=== PATIENT | female | born 1945 | race Caucasian/White ===

== ENCOUNTER 2025-03-29 06:02 | Inpatient (IN) | payer MEDICARE, OTHER ==
[2025-03-26 12:58] LABS: Basophils # (auto) 0.1 10 ^3/uL (0-0.2); Eosinophils # (auto) 0.3 10 ^3/uL (0-0.8); Eosinophils % (auto) 3.6 % (0.0-7.0); Hematocrit 35.5 % (36.0-46.0); Hemoglobin 12.4 g/dL (12.2-16.2); Lymphocytes # (auto) 1.7 10 ^3/uL (0.4-5.4); Lymphocytes % (auto) 22.9 % (10.0-50.0); Mean Corpuscular Hemoglobin 30.6 pg (28.0-32.0); Mean Corpuscular Hgb Conc. 34.9 g/dL (32.0-36.0); Mean Corpuscular Volume 87.6 fL (80.0-100.0); Monocytes # (auto) 0.5 10 ^3/uL (0-1.3); Monocytes % (auto) 7.3 % (0.0-12.0); Neutrophils # (auto) 4.9 10 ^3/uL (1.6-8.6); Neutrophils % (auto) 65.2 % (37.0-80.0); Platelet Count (auto) 283 10^3/uL (140-450); Red Blood Cells 4.05 10^6/uL (4.0-5.20); Red Cell Distribution Width 14.6 % (11.8-14.3); White Blood Cell 7.5 10^3/uL (4.4-10.8)
[2025-03-26 13:08] LABS: Urine Bacteria FEW /hpf (None Seen); Urine Blood Negative /uL (Negative); Urine Clarity Clear (Clear); Urine Color Colorless (Yellow); Urine Protein, UAD Negative (Negative); Urine Specific Gravity 1.007 (1.001-1.035); Urine Squamous Epithelial Cell FEW /hpf (<5); Urine Urobilinogen Normal (Negative); Urine WBC < 1 /HPF (0-5); Urine pH 6.5 (5.0-9.0)
[2025-03-26 13:26] LABS: Alanine Aminotransferase 10 U/L (7-40); Albumin 4.4 g/dL (3.2-4.8); Alkaline Phosphatase 82 U/L (46-116); Anion Gap 6 (5-15); Aspartate Aminotransferase 20 U/L (13-40); BUN/Creatinine Ratio 15.6 (10.0-20.0); Blood Urea Nitrogen 19 mg/dL (9-23); Calcium 9.9 mg/dL (8.7-10.4); Carbon Dioxide 25 mmol/L (20-31); Chloride 100 mmol/L (98-107); Glucose 97 mg/dL (74-106); Potassium 3.9 mmol/L (3.5-5.1); Total Protein 7.3 g/dL (5.7-8.2)
[2025-03-26 13:27] LABS: Bilirubin, Total 0.4 mg/dL (0.2-1.0); Sodium 131 mmol/L (136-145)
[2025-03-26 13:33] LABS: INR 1.03 (0.9-1.15); Partial Thromboplastin Time 30.5 SEC (24.5-34.5); Prothrombin Time 10.9 sec (9.3-11.8)
[~2025-03-29] VITALS: Ht 162.6 cm; Wt 92.6 kg
[~2025-03-29 06:02] MED LIST: ALEN35TA18 PO; APIX5TAB PO; ATOR10TA52 PO; FAMO20TA10 GT; IBUP100S11 GT; LEVO-848 GT; LISI20TA56 PO; MET50T GT; SERT25TA28 PO
[2025-03-29] MEDS: ACETAMINOPHEN IV 100 ML IV ONE (06:51)
[2025-03-29] MEDS: CELECOXIB 100 MG CAP ONE (06:55)
[2025-03-29] MEDS: PREGABALIN CAPSULE 75 MG CAP ONE (06:56)
[2025-03-29] MEDS: ACETAMINOPHEN IV 1000 MG/100ML (10MG/ML) IV ONE (07:00)
[2025-03-29] MEDS: CELECOXIB 100 MG CAP PO ONE (07:00)
[2025-03-29] MEDS: PREGABALIN CAPSULE 75 MG CAP PO ONE (07:00)
[2025-03-29] MEDS ORDERED: MIDAZOLAM HCL 2MG/2ML 2ml VIAL (1mg/ml) ONE (07:11)
[2025-03-29] MEDS ORDERED: fentaNYL CITRATE 100 MCG/2 ML VL ONE (07:11)
[2025-03-29] MEDS ORDERED: MORPHINE SULF PF 5 MG/10 ML VIAL ONE (07:11)
[2025-03-29] MEDS ORDERED: ONDANSETRON HCL 4 MG/2 ML VIAL ONE (07:12)
[2025-03-29] MEDS ORDERED: DexAMETHasone SOD PHOS 10MG/1ML VIAL INJ ONE (07:12)
[2025-03-29] MEDS ORDERED: LIDOCAINE 2% (LOCAL ANESTH.) PF 5ml SDV ONE (07:12)
[2025-03-29] MEDS: CEFEPIME 1GM/ 50ML 50 ML IV ONE (07:13)
[2025-03-29] MEDS: ceFAZolin 2 GM/D5W50ml 50 ML IV ONE (07:13)
[2025-03-29] MEDS: TRANEXAMIC ACID 20 ML ONE (07:13)
[2025-03-29] MEDS ORDERED: ONDANSETRON HCL 4 MG/2 ML VIAL IV PRN (07:30)
[2025-03-29] MEDS ORDERED: NITROGLYCERIN 0.4 MG SL TAB SL PRN (07:30)
[2025-03-29] MEDS ORDERED: MORPHINE SULFATE INJ 2 MG/ml SYRG IV PRN (07:30)
[2025-03-29] MEDS: ceFAZolin 1GM/50ML 50 ML IV SCH (07:30)
[2025-03-29] MEDS ORDERED: HYDROmorphone HCL 2 MG/ML VL/or syr IV PRN ×2 (07:30→09:30)
[2025-03-29] MEDS ORDERED: PROPOFOL 10 MG/ML 20 ML IV ONE (07:50)
[2025-03-29] MEDS ORDERED: ROCURONIUM 10MG/ML 10ML VIAL IV ONE (07:51)
[2025-03-29] MEDS ORDERED: ePHEDrine SULFATE 50 MG/ML AMP ONE (08:01)
[2025-03-29] MEDS: MORPHINE SULF PF 5 MG/10 ML VIAL ONE (08:06)
[2025-03-29] MEDS: BUPIVACAINE 0.25% INJ 50ML VIAL ONE (08:06)
[2025-03-29] MEDS: VANCOMYCIN HCL 1000 MG VL ONE (08:06)
[2025-03-29] MEDS: KETOROLAC TROMETH 30 MG/ML 1ML VIAL ONE (08:06)
[2025-03-29] MEDS ORDERED: HYDROmorphone HCL 2 MG/ML VL/or syr ONE (08:20)
[2025-03-29] MEDS ORDERED: LIDOCAINE W/ EPINEPHRINE 1% 20ML VIAL ONE (08:35)
[2025-03-29] MEDS: BUPIVACAINE HCL 0.25% P/F 10 ML VIAL ONE (08:38)
[2025-03-29] MEDS ORDERED: SUGAMMADEX 200mg/2ml Vial (100MG/ML) IV ONE (08:46)
[2025-03-29] MEDS ORDERED: ONDANSETRON HCL 4 MG/2 ML VIAL IV ONE (09:30)
[2025-03-29] MEDS ORDERED: METOCLOPRAMIDE HCL 5MG/ml INJ 2ml VIAL IV ONE (09:30)
[2025-03-29] MEDS ORDERED: hydrALAZINE HCL 20 MG/ML VL IV PRN (09:30)
--- NOTE | 2025-03-29 09:43 | DVHOP2 ---
Operative Report - 2 Report Details Date: 03/29/25 Preop Diagnosis: Right hip osteoarthritis Postop Diagnosis: as above Surgeon: Andrzej Merrill MD Communications Department Chair: Mehul MCKAY Anesthesiologist: Ambrocio RITTER Anesthesia: General Implant: [place] [employer] Size 52 mm R3 cup 35/25 mm screw dual mobility 40+0 femoral head size 9 catalyst std offset stem Consent: The patient was informed of the risks and benefits of the procedure. These include but are not limited to complications of anesthesia, postoperative infection, incomplete relief of symptoms, recurrence of symptoms, damage to blood vessels, nerves and tendons, deep venous thrombosis, pulmonary embolism and possible need for repeat surgery in the future. Estimated Blood Loss: 300 cc Name of Procedure Performed Right total hip arthroplasty using computer navigation/ complex surgery with BMI above 35 Procedure Details Procedure Details: FINDINGS: Extensive degenerative disease with grade IV changes INDICATION: This patient has failed non-operative treatments for hip arthritis and is now indicated for a total hip replacement. Preoperatively in the waiting area as well as in the office, I had a long discussion with the patient regarding the plan, the expected outcome, the risks, benefits, and alternatives of surgery. The risks include, but are not limited to, infection (which may require future surgery and removal of implants) , bleeding (which may require a transfusion), damage to nerves, arteries, veins, tendons, muscles and other adjacent structures. Also discussed the possibilities of dislocation, leg-length discrepancy, intraoperative fractures, implant loosening, heterotopic bone formation, and revision for variety of reasons, and medical complications etc. This was discussed at length and consent has been obtained. DESCRIPTION OF PROCEDURE: In the preoperative holding area, the consent was reviewed and the appropriate extremity was verified by the patient and marked with my initials. The patient was then transferred to the operating theatre. Appropriate anesthetia was induced. All bony prominences were well padded. A time out was performed verifying the side and site of surgery according to standard protocol. Preoperative antibiotics were given. Tranexamic acid was given. The patient was then placed in the lateral decubitus position and fixed with rigid pelvic fixation. All bony prominences were well padded and an axillary roll was placed. The affected hip area was then prepped and draped in the usual sterile fashion. Using an 11-blade, three stab incisions were made over the iliac crest. Two threaded guide pins were inserted into the crest confirming to be in bone. The pelvic array was attached to the pins and tightened. We made a standard posterolateral incision sharply through the skin and carried our dissection down through subcutaneous tissue to the underlying fascia achieving hemostasis where necessary. We incised the fascia in line with our incision. We identified and protected the sciatic nerve. We took down the external rotators and hip capsule from their insertion into the greater trochanter, tagged them and retracted them posteriorly for further protection of the sciatic nerve. A check point was placed into the greater trochanter and the hip center and leg length length were registered. We then dislocated the femoral head and performed an osteotomy of the femoral neck in accordance with our pre-operative plan. The labrum was excised with a long-handle knife, and we exposed the acetabular rim and cotyloid fossa. We then reamed up to our final size in accordance with the preoperative plan. We copiously irrigated and then impacted the final cup into position. We confirmed the position with the robotic navigation guidance. We placed two a cetabular dome screws into the posterior-superior quadrant in the usual fashion. We irrigated the cup and impacted the liner, checking to make sure it was well seated. Attention was then turned to the femur. We used a box osteotome followed by a canal finder to gain entry to the canal. Intramedullary contents were suctioned and care was taken to ensure they did not touch the tissues. We sequentially reamed until good cortical contact, then broached up to out final size. We trialed with the appropriate femoral neck and head and reduced the hip. The hip was taken through a full range of motion. The hip soft tissues were examined in extension and external rotation, the anterior capsule and IT band were palpated, and combined anteversion was determined to be 40 degrees. The hip was stable at maximum flexion, at 90 degrees of flexion and 45 degrees of internal rotation and the position of sleep. Leg lengths were restored as shown using the computer navigation, and the trial LTC matched preoperative and intraoperative templating. The hip was then dislocated and trial components removed. We copiously irrigated the wound and impacted the final femoral stem into position. The femoral head was impacted onto a clean and dry trunion and confirmed to be seated. The hip was reduced ensuring to tissues in the acetabular cup. We again brought it through a full functional range of motion and there was no evidence for dislocation, instability, or impingement. The checkpoint was removed. A dilute betadine solution (17.5mL in 500mL saline) was used to wash the joint and left to sit for 3 minutes. This was then irrigated out with copious amounts of pulse lavage. We sprinkled 1g vancomycin powder below the fascia and 1g above the fascia. We copiously irrigated the wound and soft tissues. The short external rotators and capsule were repaired to the greater trochanter through drill holes, and the quadratus was repaired. We palpated the sciatic nerve in continuity without tension. The fascia was closed with vicryl and a barbed suture. We closed over the fascia with vicryl suture and re-approximated the skin with phil. A sterile dressing was placed. We returned the patient to the supine position. We verified all lower extremity compartments were soft and compressible and that we had intact distal pulses and checked our leg length jainism. We took an AP Pelvis in the operating room, which we reviewed prior to transfer. The patient was then transferred to the recovery room in stable condition. Condition Good Disposition Still a Patient ANDRZEJ MERRILL MD Mar 29, 2025 09:43
[2025-03-29] MEDS: LACTATED RINGER'S 1,000 ML IV SCH (09:50)
--- NOTE | 2025-03-29 09:51 | DVH ---
EXAM: XY PELVIS AP CLINICAL INDICATION: sp Right YARA TECHNIQUE: XY PELVIS AP Comparison: None FINDINGS/IMPRESSION: There is no evidence of acute fracture or dislocation. Status post right total hip arthroplasty. Moderate left hip osteoarthritis
[2025-03-29] MEDS: LEVOTHYROXINE SODIUM 50 MCG TAB GT SCH (10:00)
[2025-03-29] MEDS ORDERED: SERTRALINE HCL 25 MG PO SCH (10:00)
[2025-03-29] MEDS ORDERED: PATIENTS OWN MEDICATION (Atorvastatin Calcium 10 MG) PO SCH (10:00)
[2025-03-29] MEDS ORDERED: MORPHINE SULFATE 4 MG/ML SYR/VIAL IV PRN (10:00)
[2025-03-29] MEDS ORDERED: CEFEPIME 1GM/ 50ML 50 ML IV SCH (10:00)
[2025-03-29] MEDS: LISINOPRIL 20 MG TAB PO SCH (10:00)
[2025-03-29] MEDS: METOPROLOL TARTRATE 50 MG TAB GT SCH (10:00)
[2025-03-29 10:40] VITALS: BP 99/45; PULSE 69; RESP 19; TEMP 97.7; O2SAT 95
[2025-03-29] MEDS: DOCUSATE SOD 100 MG CAP PO SCH (11:57)
[2025-03-29] MEDS: FAMOTIDINE 20 MG TAB GT SCH (11:57)
[2025-03-29] MEDS: SERTRALINE HCL 50 MG TAB PO SCH (11:59)
[2025-03-29] MEDS: CEFEPIME 1GM/ 50ML 50 ML IV SCH (12:01)
[2025-03-29 12:51] VITALS: BP 112/67; PULSE 69; RESP 19; TEMP 97.7; O2SAT 95
[2025-03-29 17:01] VITALS: BP 115/74; PULSE 58; RESP 19; TEMP 97.9; O2SAT 94
[2025-03-29] MEDS: SODIUM CHLOR 0.9% PF (SALINE LOCK) 10ML VIAL/SYR IV SCH (18:07)
[2025-03-29] MEDS: HYDROcodone-ACET 5/325MG TAB PO PRN (18:07)
[2025-03-29 20:00] VITALS: PULSE 61; RESP 17; O2SAT 100
[2025-03-29 21:26] VITALS: BP 96/60; PULSE 53; RESP 17; O2SAT 97
[2025-03-29] MEDS: ATORVASTATIN 20 MG TAB PO SCH (22:29)
[2025-03-30] VITALS (8 sets, daily range): BP systolic 100–128; BP diastolic 53–74; PULSE 66–77; RESP 17–19; TEMP 97.4–98.7; O2SAT 92–100
[2025-03-30 06:26] LABS: Hematocrit 31.4 % (36.0-46.0); Hemoglobin 10.5 g/dL (12.2-16.2)
[2025-03-30 06:32] LABS: Albumin 3.7 g/dL (3.2-4.8); Alkaline Phosphatase 59 U/L (46-116); Anion Gap 10 (5-15); BUN/Creatinine Ratio 19.5 (10.0-20.0); Bilirubin, Total 0.4 mg/dL (0.2-1.0); Chloride 98 mmol/L (98-107); Potassium 4.8 mmol/L (3.5-5.1); Total Protein 6.3 g/dL (5.7-8.2)
[2025-03-30 06:40] LABS: Alanine Aminotransferase < 9 U/L (7-40); Blood Urea Nitrogen 26 mg/dL (9-23); Calcium 8.7 mg/dL (8.7-10.4); Carbon Dioxide 20 mmol/L (20-31); Glucose 117 mg/dL (74-106); Sodium 128 mmol/L (136-145)
[2025-03-30 07:26] LABS: Aspartate Aminotransferase 40 U/L (13-40)
--- NOTE | 2025-03-30 08:10 | DVHPN2 ---
Progress Note Date Seen: Mar 30, 2025 Medical Necessity Reason Pt with a Central, PICC or Fol: No Subjective Patient reports: No new complaints Objective vital signs Vital Sign Date Time Temp Pulse Resp B/P (MAP) Pulse Ox O2 Delivery O2 Flow Rate FiO2 03/30/25 05:00 97.5 74 19 100/53 (69) 100 97.5 03/29/25 20:00 Nasal Cannula* 2 28 Total Intake and Output 03/29/25 03/29/25 03/30/25 15:00 23:00 07:00 Intake Total 120 ml 400 ml 550 ml Balance 120 ml 400 ml 550 ml medications Current Medications Medications Dose Ordered Sig/Lacey Route Start Time Stop Time Status Last Admin Dose Admin Famotidine 20 mg DAILY GT 03/29/25 10:00 03/29/25 11:57 20 MG Levothyroxine Sodium 50 mcg DAILY GT 03/29/25 10:00 Lisinopril 20 mg DAILY PO 03/29/25 10:00 Metoprolol Tartrate 50 mg BID GT 03/29/25 10:00 Patient Own Medication 10 mg DAILY PO 03/29/25 10:00 UNV Patient Own Medication 25 mg DAILY PO 03/29/25 10:00 UNV Lactated Ringer's 1,000 ml @ 100 mls/hr Q10H IV 03/29/25 07:30 03/30/25 04:42 100 MLS/HR Sodium Chloride 10 ml Q8HR IV 03/29/25 14:00 03/30/25 05:31 10 ML Acetaminophen/ Hydrocodone Bitart 1 tab Q4HP PRN PO 03/29/25 07:30 03/29/25 18:07 1 TAB Hydromorphone HCl 1 mg Q2HP PRN IV 03/29/25 07:30 Ondansetron HCl 4 mg Q6HP PRN IV 03/29/25 07:30 Docusate Sodium 100 mg Q12HR PO 03/29/25 10:00 03/29/25 22:29 100 MG Nitroglycerin 0.4 mg Q5MINP PRN SL 03/29/25 07:30 Morphine Sulfate 2 mg Q30M PRN IV 03/29/25 07:30 UNV Atorvastatin Calcium 10 mg HS PO 03/29/25 22:00 03/29/25 22:29 10 MG Sertraline HCl 25 mg DAILY PO 03/29/25 10:00 03/29/25 11:59 25 MG Morphine Sulfate 2 mg Q30M PRN IV 03/29/25 10:00 Cefepime HCl 50 ml @ 12.5 mls/hr Q12H IV 03/29/25 10:15 03/29/25 22:30 12.5 MLS/HR Examination: GENERAL:Normal, MSK:Abnormal laboratory and microbiology Laboratory Tests 03/30/25 04:56 03/26/25 12:45 Test 03/30/25 04:56 Range/Units Serum Glucose 117 H 74-106 mg/dL Problem List/Assessment/Plan Problem List/Assessment/Plan 79 year old female who is s/p Right YARA POD 1 1. WBAT with walker 2. Physical therapy 3. discussed posterior hip precautions 4. DVT ppx 5. pain control Plan discussed with: Patient Date of Service: Mar 30, 2025 Billing Provider: SHARON MERRILL MD Common Visit Codes: NOT BILLABLE JENNIFFER SANTIAGO NP Mar 30, 2025 08:10
[2025-03-30] MEDS ORDERED: HYDROmorphone HCL 2 MG/ML VL/or syr IV PRN (14:30)
--- NOTE | 2025-03-30 14:53 | DVHHP2 ---
Review of Systems Allergies: Coded Allergies: NO KNOWN ALLERGIES (Unverified , 03/26/25) Medications Current Medications Medications Dose Ordered Sig/Lacey Route Start Time Stop Time Status Last Admin Dose Admin Patient Own Medication 10 mg DAILY PO 03/29/25 10:00 UNV Patient Own Medication 25 mg DAILY PO 03/29/25 10:00 UNV Lactated Ringer's 1,000 ml @ 100 mls/hr Q10H IV 03/29/25 07:30 03/30/25 04:42 100 MLS/HR Sodium Chloride 10 ml Q8HR IV 03/29/25 14:00 03/30/25 05:31 10 ML Acetaminophen/ Hydrocodone Bitart 1 tab Q4HP PRN PO 03/29/25 07:30 03/30/25 10:53 1 TAB Ondansetron HCl 4 mg Q6HP PRN IV 03/29/25 07:30 Docusate Sodium 100 mg Q12HR PO 03/29/25 10:00 03/30/25 09:12 100 MG Nitroglycerin 0.4 mg Q5MINP PRN SL 03/29/25 07:30 Morphine Sulfate 2 mg Q30M PRN IV 03/29/25 07:30 UNV Atorvastatin Calcium 10 mg HS PO 03/29/25 22:00 03/29/25 22:29 10 MG Sertraline HCl 25 mg DAILY PO 03/29/25 10:00 03/30/25 09:13 25 MG Morphine Sulfate 2 mg Q30M PRN IV 03/29/25 10:00 Cefepime HCl 50 ml @ 12.5 mls/hr Q12H IV 03/29/25 10:15 03/30/25 09:15 12.5 MLS/HR Famotidine 20 mg DAILY PO 03/31/25 10:00 UNV Hydromorphone HCl 1 mg Q3HP PRN IV 03/30/25 14:30 UNV Levothyroxine Sodium 50 mcg DAILY PO 03/31/25 10:00 UNV Exam Vital Signs Vital Signs Date Time Temp Pulse Resp B/P (MAP) Pulse Ox O2 Delivery O2 Flow Rate FiO2 03/30/25 10:23 97.7 67 17 126/74 (91) 95 97.7 03/30/25 08:10 Nasal Cannula* 2 28 Labs/Xrays Labs Test 03/30/25 04:56 03/26/25 12:45 Range/Units Hemoglobin 10.5 #L 12.2-16.2 g/dL Hematocrit 31.4 #L 36.0-46.0 % Sodium Level 128 L 136-145 mmol/L Potassium Level 4.8 3.5-5.1 mmol/L Chloride Level 98 98-107 mmol/L Carbon Dioxide Level 20 20-31 mmol/L Anion Gap 10 5-15 Blood Urea Nitrogen 26 H 9-23 mg/dL Creatinine 1.33 H 0.550-1.02 mg/dL Glomerular Filtration Rate Calc 40 >90 mL/min BUN/Creatinine Ratio 19.5 10.0-20.0 Serum Glucose 117 H 74-106 mg/dL Calcium Level 8.7 8.7-10.4 mg/dL Total Bilirubin 0.4 0.2-1.0 mg/dL Aspartate Amino Transferase (AST) 40 13-40 U/L Alanine Aminotransferase (ALT) < 9 7-40 U/L Alkaline Phosphatase 59 46-116 U/L Total Protein 6.3 5.7-8.2 g/dL Albumin 3.7 3.2-4.8 g/dL White Blood Count 7.5 4.4-10.8 10^3/uL Red Blood Count 4.05 4.0-5.20 10^6/uL Mean Corpuscular Volume 87.6 80.0-100.0 fL Mean Corpuscular Hemoglobin 30.6 28.0-32.0 pg Mean Corpuscular Hemoglobin Concent 34.9 32.0-36.0 g/dL Red Cell Distribution Width 14.6 H 11.8-14.3 % Platelet Count 283 140-450 10^3/uL Mean Platelet Volume 7.0 6.9-10.8 fL Neutrophils (%) (Auto) 65.2 37.0-80.0 % Lymphocytes (%) (Auto) 22.9 10.0-50.0 % Monocytes (%) (Auto) 7.3 0.0-12.0 % Eosinophils (%) (Auto) 3.6 0.0-7.0 % Basophils (%) (Auto) 1.0 0.0-2.0 % Neutrophils # (Auto) 4.9 1.6-8.6 10 ^3/uL Lymphocytes # (Auto) 1.7 0.4-5.4 10 ^3/uL Monocytes # (Auto) 0.5 0-1.3 10 ^3/uL Eosinophils # (Auto) 0.3 0-0.8 10 ^3/uL Basophils # (Auto) 0.1 0-0.2 10 ^3/uL Nucleated Red Blood Cells 0.0 % Prothrombin Time 10.9 9.3-11.8 sec Prothrombin Time INR 1.03 0.9-1.15 Activated Partial Thromboplast Time 30.5 24.5-34.5 SEC Urine Color Colorless Yellow Urine Clarity Clear Clear Urine pH 6.5 5.0-9.0 Urine Specific [place] 1.007 1.001-1.035 Urine Protein Negative Negative Urine Ketones Negative Negative Urine Blood Negative Negative /uL Urine Nitrite Negative Negative Urine Bilirubin Negative Negative Urine Urobilinogen Normal Negative mg/dL Urine Leukocyte Esterase Negative Negative /uL Urine RBC 1 0 - 4 /hpf Urine Microscopic WBC < 1 0-5 /HPF Urine Squamous Epithelial Cells Few <5 /hpf Urine Bacteria Few H None Seen /hpf Urine Glucose Normal Normal mg/dL Assessment/Plan Assessment/Plan see dictated note Plan discussed with: Patient, Spouse My Orders Orders - LEONARDO DUARTE MD Procedure Category Date Status Time Famotidine Tablet PHA 03/31/25 In Process (Pepcid Tablet) 10:00 Hydromorphone PHA 03/30/25 In Process Injection (Dilaudid 14:30 Levothyroxine Tablet PHA 03/31/25 In Process (Synthroid Tablet) 07:00 Complete Blood Count LAB 03/31/25 Verified 06:00 Comprehensive LAB 03/31/25 Verified Metabolic Panel 06:00 Chest Portable XY 03/30/25 Logged 14:29 Thyroid Stimulating LAB 03/31/25 Verified Hormone 05:00 Date of Service: Mar 30, 2025 Billing Provider: LEONARDO DUARTE MD Common Visit Codes: 52858-[id number] INP/OBS CARE (HIGH) Secondary Visit Codes: 95832-[id number] CARE PLAN 30 MINUTES LEONARDO DUARTE MD Mar 30, 2025 14:53
--- NOTE | 2025-03-30 15:14 | DVHHP ---
ADMIT DATE: 03/29/2025 HISTORY OF PRESENT ILLNESS: The patient is an 79-year-old lady who is admitted after she underwent surgery on the right hip for DJD of the hip. The patient at this time complains of dizziness. No history of syncope. No chest pain. No shortness of breath. No nausea or vomiting. REVIEW OF SYSTEMS: Otherwise currently negative. PAST MEDICAL HISTORY: Significant for hypertension, hypothyroidism, atrial fibrillation, and hyperlipidemia. MEDICATIONS: Include Lipitor, Eliquis, levothyroxine, lisinopril, metoprolol, and Zoloft. ALLERGIES: No known drug allergies. SOCIAL HISTORY: Denies smoking or alcohol. Lives with her and daughter. FAMILY HISTORY: Negative. PHYSICAL EXAMINATION: GENERAL: The patient is awake and alert. VITAL SIGNS: Temperature of 97.7, pulse 67 per minute, blood pressure 126/74. SHEENT: Unremarkable. NECK: There is no JVD. No pedal edema. LUNGS: Equal bilaterally. No added sounds. CARDIOVASCULAR: S1 and S2 regular. No murmurs. ABDOMEN: Soft. There is no organomegaly. NEUROLOGIC: Nonfocal. MUSCULOSKELETAL: There is a dressing at the site of right hip surgery. ASSESSMENT AND PLAN: * Hypertension. The patient's blood pressure medications will be held and blood pressure will be monitored. * Hyponatremia. * Hypothyroidism. Her TSH will be checked. * Hyperlipidemia. * Questionable acute renal failure/vasomotor nephropathy. Renal function will be monitored. * Obesity. * Depression. * Status post right hip surgery for degenerative joint disease of the hip for which she will receive physical therapy and pain medication. ADVANCED CARE PLANNING: The patient is a full code-Time spent was 18 minutes. MD DARA Henderson/EKT TID: [id number] RECEIPT: [id number] MTDD
--- NOTE | 2025-03-30 17:10 | DVH ---
CHEST RADIOGRAPH Indication: htn Technique: Single frontal view of the chest was obtained COMPARISON: None FINDINGS: The cardiac silhouette is enlarged. The lungs demonstrate bilateral patchy airspace opacities. The pu lmonary vasculature is prominent. Small bilateral pleural effusions. There is no pneumothorax. Aortic atherosclerotic disease. Postsurgical changes of the GE junction. Severe degenerate changes right sh oulder. IMPRESSION: 1. As above
[2025-03-31 01:00] VITALS: BP 104/37; PULSE 82; RESP 18; TEMP 97.4; O2SAT 92
[2025-03-31 05:00] VITALS: BP 120/50; PULSE 81; RESP 17; TEMP 97.5; O2SAT 94
[2025-03-31] MEDS: LEVOTHYROXINE SODIUM 50 MCG TAB PO SCH (05:36)
[2025-03-31 08:10] LABS: Basophils # (auto) 0 10 ^3/uL (0-0.2); Basophils % (auto) 0.3 % (0.0-2.0); Eosinophils # (auto) 0.1 10 ^3/uL (0-0.8); Eosinophils % (auto) 1.3 % (0.0-7.0); Hematocrit 26.5 % (36.0-46.0); Hemoglobin 9.1 g/dL (12.2-16.2); Lymphocytes # (auto) 0.9 10 ^3/uL (0.4-5.4); Lymphocytes % (auto) 9.7 % (10.0-50.0); Mean Corpuscular Hgb Conc. 34.4 g/dL (32.0-36.0); Mean Corpuscular Volume 87.3 fL (80.0-100.0); Monocytes # (auto) 0.8 10 ^3/uL (0-1.3); Monocytes % (auto) 8.7 % (0.0-12.0); Neutrophils # (auto) 7.3 10 ^3/uL (1.6-8.6); Platelet Count (auto) 205 10^3/uL (140-450); Red Blood Cells 3.04 10^6/uL (4.0-5.20); Red Cell Distribution Width 14.3 % (11.8-14.3); White Blood Cell 9.2 10^3/uL (4.4-10.8)
--- NOTE | 2025-03-31 08:16 | DVHPN2 ---
Progress Note Date Seen: Mar 31, 2025 Medical Necessity Reason Pt with a Central, PICC or Fol: No Subjective Patient reports: Feels worse (patient notes increased pain, discussed that bruising is normal) Objective vital signs Vital Sign Date Time Temp Pulse Resp B/P (MAP) Pulse Ox O2 Delivery O2 Flow Rate FiO2 03/31/25 05:00 97.5 81 17 120/50 (73) 94 97.5 03/30/25 20:00 Nasal Cannula* 2 28 Total Intake and Output 03/30/25 03/30/25 03/31/25 15:00 23:00 07:00 Intake Total 50 ml 480 ml 850 ml Balance 50 ml 480 ml 850 ml medications Current Medications Medications Dose Ordered Sig/Lacey Route Start Time Stop Time Status Last Admin Dose Admin Patient Own Medication 10 mg DAILY PO 03/29/25 10:00 UNV Patient Own Medication 25 mg DAILY PO 03/29/25 10:00 UNV Lactated Ringer's 1,000 ml @ 100 mls/hr Q10H IV 03/29/25 07:30 03/30/25 04:42 100 MLS/HR Sodium Chloride 10 ml Q8HR IV 03/29/25 14:00 03/31/25 05:54 10 ML Acetaminophen/ Hydrocodone Bitart 1 tab Q4HP PRN PO 03/29/25 07:30 03/31/25 03:05 1 TAB Ondansetron HCl 4 mg Q6HP PRN IV 03/29/25 07:30 Docusate Sodium 100 mg Q12HR PO 03/29/25 10:00 03/30/25 21:26 100 MG Nitroglycerin 0.4 mg Q5MINP PRN SL 03/29/25 07:30 Morphine Sulfate 2 mg Q30M PRN IV 03/29/25 07:30 UNV Atorvastatin Calcium 10 mg HS PO 03/29/25 22:00 03/30/25 21:26 10 MG Sertraline HCl 25 mg DAILY PO 03/29/25 10:00 03/30/25 09:13 25 MG Morphine Sulfate 2 mg Q30M PRN IV 03/29/25 10:00 Cefepime HCl 50 ml @ 12.5 mls/hr Q12H IV 03/29/25 10:15 03/30/25 21:26 12.5 MLS/HR Famotidine 20 mg DAILY PO 03/31/25 10:00 Hydromorphone HCl 1 mg Q3HP PRN IV 03/30/25 14:30 Levothyroxine Sodium 50 mcg QAM PO 03/31/25 07:00 03/31/25 05:36 50 MCG Examination: GENERAL:Normal, MSK:Abnormal laboratory and microbiology Test 03/31/25 07:21 Range/Units Serum Glucose Pending Problem List/Assessment/Plan Problem List/Assessment/Plan 79 year old female who is s/p Right YARA POD 2 1. WBAT with walker 2. Physical therapy 3. discussed posterior hip precautions 4. DVT ppx 5. pain control 6. patient to follow up in 2 weeks as scheduled 7. patient is clear for discharge from orthopedic standpoint, recommending SNF for discharge with the following recommendations: POSTOPERATIVE Posterior Total Hip INSTRUCTIONS Activity: 1. You can bear as much weight as you tolerate on your hip unless specifically instructed otherwise. You may use the walking aid which you were discharged with and switch to a cane whenever you feel comfortable doing so. You should use an assistive device until you can walk comfortably without it. Keep in mind that every patient moves at their own speed of recovery so take your time. 2. A physical therapist will visit you at home. 3. Although guarantees against a dislocation do not exist, the hip was noted to be sufficiently stable in surgery. Below are motions that you should dischargenot do for 4-6 weeks, depending on the surgical approach used. If there are questions, please call the office. a. Bend forward past 90 degrees b. Sit on a regular low chair, couch, car seat etc... c. Cross your legs d. Use a regular low toilet seat. e. Sleep on your stomach or on either side. 3. High impact activity such as jumping, aerobics, tennis, and skiing are not permitted during the first 3 months after surgery. These activities can contribute to accelerated wear and should be done with caution after this time. Discuss this with your surgeon if you have questions. 4. Although a bath or whirlpool is NOT permitted during the first 2-3 weeks, you may shower as soon as you get home from the hospital provided you are able to keep your bandage clean and dry and there is no wound drainage. If you are unable to place a secured covering over your bandage bed bath/sponge bath may likely be the more appropriate option. 5. Swimming is not permitted until the wound is healed, which typically occurs approximately 3-4 weeks after surgery. Wound Management: If the wound is draining please change the gauze pad on the wound until it stops. If drainage persists past 10 days please notify our office. If there is a sticky gel dressing over your wound, you may leave this in place for as long as it is clean and dry. If it becomes loose or causes skin irritation, it is OK to remove it and place clean gauze over your wound. 1. You might notice some bruising around the surgical site, this is normal. 2. Check your temperature on a daily basis. Please note that a low-grade temp below 101 is not uncommon after surgery especially during the first 3 days. Notify the office if your temperature spikes above 101.5 after the 3rd post- operative date. 3. Many patients experience significant swelling in the thigh, this may extend below the knee and sometimes to the ankle. Swelling increases during the first week and subsides during the following week. 4. Provided you have been on a blood thinner since surgery and have been up and about at least three times per day, the risk of a blood clot is low and this swelling is an expected part of recovery. It will largely or completely resolve by your first post-operative visit. 5. Andre, if present, will be removed at 2 weeks during initial post-op visit. Medications: 1. You will be discharged with pain medication, Aspirin as a blood thinner and sometimes an anti-inflammatory medication such as Celebrex or Mobic might be prescribed. Please follow the instructions regarding these medicines as provided by your nurse at the hospital. 2. Narcotic pain medication has side effects, including constipation. Please ensure you continue to take stool softeners (Colace, Senna) while taking your pain medication to help protect against constipation. Getting up and moving around at least a few times per day helps with this also. 3. Lovenox 40 Sq x 12 days followed by one regular strength 325 mg coated aspirin daily for 4 weeks after surgery. Then, take one baby aspirin, 81 mg daily for 6 weeks more. A major, yet preventable, complication of Orthopaedic Surgery is a blood clot (DVT). It is important not to miss any doses of this important medication. 4. You should restart all of your prescription medications once discharged unless specifically instructed otherwise. 5. Herbal supplements may be restarted 2 weeks after surgery. Miscellaneous issues: 1. Driving is not permitted within the first 2 weeks. 2. Your first postoperative visit will take place 2weeks after discharge. Please call the office to arrange this appointment. 3. Antibiotic preventative treatment is required before dental or other invasive procedures. Please ask your surgeon about this at your first postoperative visit. Your hip replacement contains metal which may activate metal detectors. You may wish to carry a letter from your surgeon to communicate this to security personnel. If you experience chest pain, shortness of breath or severe painful calf swelling, go to the nearest emergency room to be evaluated. Please call our office once your situation is stabilized. Plan discussed with: Patient My Orders My Orders Orders - JENNIFFER SANTIAGO NP Procedure Category Date Status Time * Wound Consult CONS 03/30/25 Transmitted Date of Service: Mar 31, 2025 Billing Provider: SHARON MERRILL MD Common Visit Codes: NOT BILLABLE JENNIFFER SANTIAGO NP Mar 31, 2025 08:16
[2025-03-31 08:22] LABS: Alanine Aminotransferase 14 U/L (7-40); Albumin 3.5 g/dL (3.2-4.8); Alkaline Phosphatase 59 U/L (46-116); Anion Gap 7 (5-15); BUN/Creatinine Ratio 23.1 (10.0-20.0); Calcium 8.9 mg/dL (8.7-10.4); Carbon Dioxide 24 mmol/L (20-31); Potassium 4.1 mmol/L (3.5-5.1); Total Protein 5.8 g/dL (5.7-8.2)
[2025-03-31 08:23] LABS: Aspartate Aminotransferase 57 U/L (13-40); Bilirubin, Total 0.5 mg/dL (0.2-1.0); Blood Urea Nitrogen 24 mg/dL (9-23); Chloride 94 mmol/L (98-107); Glucose 112 mg/dL (74-106); Sodium 125 mmol/L (136-145)
[2025-03-31 08:53] VITALS: BP 102/50; PULSE 84; RESP 19; TEMP 97.9; O2SAT 96
[2025-03-31] MEDS: FAMOTIDINE 20 MG TAB PO SCH (09:18)
[2025-03-31 13:00] VITALS: BP 115/55; PULSE 66; RESP 17; TEMP 98.1; O2SAT 96
--- NOTE | 2025-03-31 13:09 | DVHPN2 ---
Progress Note Date Seen: Mar 31, 2025 Medical Necessity Reason Pt with a Central, PICC or Fol: No Subjective Patient reports: No new complaints Review of Systems: HEENT:Normal, CVS:Normal, RESPIRATORY:Normal, GI:Normal, :Normal, MSK:Normal, NEURO:Normal Objective vital signs Vital Sign Date Time Temp Pulse Resp B/P (MAP) Pulse Ox O2 Delivery O2 Flow Rate FiO2 03/31/25 08:53 97.9 84 19 102/50 (67) 96 97.9 03/31/25 08:00 Nasal Cannula* 2 28 Total Intake and Output 03/30/25 03/30/25 03/31/25 15:00 23:00 07:00 Intake Total 50 ml 480 ml 850 ml Balance 50 ml 480 ml 850 ml medications Current Medications Medications Dose Ordered Sig/Lacey Route Start Time Stop Time Status Last Admin Dose Admin Patient Own Medication 10 mg DAILY PO 03/29/25 10:00 UNV Patient Own Medication 25 mg DAILY PO 03/29/25 10:00 UNV Sodium Chloride 10 ml Q8HR IV 03/29/25 14:00 03/31/25 05:54 10 ML Acetaminophen/ Hydrocodone Bitart 1 tab Q4HP PRN PO 03/29/25 07:30 03/31/25 03:05 1 TAB Ondansetron HCl 4 mg Q6HP PRN IV 03/29/25 07:30 Docusate Sodium 100 mg Q12HR PO 03/29/25 10:00 03/31/25 09:18 100 MG Nitroglycerin 0.4 mg Q5MINP PRN SL 03/29/25 07:30 Morphine Sulfate 2 mg Q30M PRN IV 03/29/25 07:30 UNV Atorvastatin Calcium 10 mg HS PO 03/29/25 22:00 03/30/25 21:26 10 MG Sertraline HCl 25 mg DAILY PO 03/29/25 10:00 03/31/25 09:18 25 MG Morphine Sulfate 2 mg Q30M PRN IV 03/29/25 10:00 Cefepime HCl 50 ml @ 12.5 mls/hr Q12H IV 03/29/25 10:15 03/31/25 09:18 12.5 MLS/HR Famotidine 20 mg DAILY PO 03/31/25 10:00 03/31/25 09:18 20 MG Hydromorphone HCl 1 mg Q3HP PRN IV 03/30/25 14:30 Levothyroxine Sodium 50 mcg QAM PO 03/31/25 07:00 03/31/25 05:36 50 MCG Examination: GENERAL:Normal, HEENT:Normal, NECK:Normal, LUNGS:Normal, CVS:Normal, ABDOMEN:Normal, MSK:Normal, SKIN:Normal, NEURO:Normal, :Normal laboratory and microbiology Laboratory Tests 03/31/25 07:21 Test 03/31/25 07:21 Range/Units Serum Glucose 112 H 74-106 mg/dL Problem List/Assessment/Plan Problem List/Assessment/Plan * Hypertension. The patient's blood pressure medications will be held and blood pressure will be monitored. * Hyponatremia: free water restriction * Hypothyroidism. Her TSH will be checked. * Hyperlipidemia. * Questionable acute renal failure/vasomotor nephropathy. Renal function will be monitored. * Obesity. * Depression. * anemia: monitor * Status post right hip surgery for degenerative joint disease of the hip for which she will receive physical therapy and pain medication. advance care planning- full code- time spent 19 mins Plan discussed with: Patient My Orders My Orders Orders - LEONARDO DUARTE MD Procedure Category Date Status Time Famotidine Tablet PHA 03/31/25 In Process (Pepcid Tablet) 10:00 Hydromorphone PHA 03/30/25 In Process Injection (Dilaudid 14:30 Levothyroxine Tablet PHA 03/31/25 In Process (Synthroid Tablet) 07:00 Chest Portable XY 03/30/25 Resulted 14:29 Free Water ANTHONY 03/31/25 Transmitted 12:59 Basic Metabolic Panel LAB 04/01/25 Verified 06:00 Complete Blood Count LAB 04/01/25 Verified 06:00 Date of Service: Mar 31, 2025 Billing Provider: LEONARDO DUARTE MD Common Visit Codes: [id number] INP/OBS CARE(HIGH) Secondary Visit Codes: [id number] CARE PLAN 30 MINUTES LEONARDO DUARTE MD Mar 31, 2025 13:09
[2025-03-31 16:56] VITALS: BP 103/47; PULSE 81; RESP 19; TEMP 98.8; O2SAT 95
[2025-03-31 21:00] VITALS: BP 136/58; PULSE 85; RESP 18; TEMP 97.9; O2SAT 95
[2025-04-01] VITALS (7 sets, daily range): BP systolic 126–147; BP diastolic 50–73; PULSE 63–104; RESP 18–20; TEMP 97.6–98.3; O2SAT 95–98
[2025-04-01 07:07] LABS: Potassium 3.9 mmol/L (3.5-5.1)
[2025-04-01 07:08] LABS: Anion Gap 7 (5-15); Basophils # (auto) 0 10 ^3/uL (0-0.2); Basophils % (auto) 0.3 % (0.0-2.0); Carbon Dioxide 22 mmol/L (20-31); Eosinophils # (auto) 0.1 10 ^3/uL (0-0.8); Hematocrit 27.7 % (36.0-46.0); Hemoglobin 9.8 g/dL (12.2-16.2); Lymphocytes # (auto) 0.9 10 ^3/uL (0.4-5.4); Lymphocytes % (auto) 9.3 % (10.0-50.0); Mean Corpuscular Hemoglobin 30.5 pg (28.0-32.0); Mean Corpuscular Hgb Conc. 35.4 g/dL (32.0-36.0); Mean Corpuscular Volume 86.2 fL (80.0-100.0); Monocytes % (auto) 9.7 % (0.0-12.0); Neutrophils # (auto) 7.8 10 ^3/uL (1.6-8.6); Neutrophils % (auto) 79.7 % (37.0-80.0); Platelet Count (auto) 218 10^3/uL (140-450); Red Blood Cells 3.21 10^6/uL (4.0-5.20); Red Cell Distribution Width 14.3 % (11.8-14.3); White Blood Cell 9.8 10^3/uL (4.4-10.8)
[2025-04-01 07:10] LABS: Calcium 8.6 mg/dL (8.7-10.4); Chloride 92 mmol/L (98-107); Sodium 121 mmol/L (136-145)
[2025-04-01 07:13] LABS: BUN/Creatinine Ratio 22.7 (10.0-20.0); Blood Urea Nitrogen 17 mg/dL (9-23); Glucose 104 mg/dL (74-106)
--- NOTE | 2025-04-01 14:41 | DVHPN2 ---
Progress Note Date Seen: Apr 01, 2025 Medical Necessity Reason Pt with a Central, PICC or Fol: No Subjective Patient reports: No new complaints Review of Systems: HEENT:Normal, CVS:Normal, RESPIRATORY:Normal, GI:Normal, :Normal, MSK:Normal, NEURO:Normal Objective vital signs Vital Sign Date Time Temp Pulse Resp B/P (MAP) Pulse Ox O2 Delivery O2 Flow Rate FiO2 04/01/25 13:00 98.2 92 20 126/55 (78) 95 98.2 04/01/25 08:00 Nasal Cannula* 2 28 Total Intake and Output 03/31/25 03/31/25 04/01/25 15:00 23:00 07:00 Intake Total 50 ml 1600 ml 1650 ml Balance 50 ml 1600 ml 1650 ml medications Current Medications Medications Dose Ordered Sig/Lacey Route Start Time Stop Time Status Last Admin Dose Admin Patient Own Medication 10 mg DAILY PO 03/29/25 10:00 UNV Patient Own Medication 25 mg DAILY PO 03/29/25 10:00 UNV Sodium Chloride 10 ml Q8HR IV 03/29/25 14:00 04/01/25 06:13 10 ML Acetaminophen/ Hydrocodone Bitart 1 tab Q4HP PRN PO 03/29/25 07:30 04/01/25 08:30 1 TAB Ondansetron HCl 4 mg Q6HP PRN IV 03/29/25 07:30 Docusate Sodium 100 mg Q12HR PO 03/29/25 10:00 04/01/25 10:32 100 MG Nitroglycerin 0.4 mg Q5MINP PRN SL 03/29/25 07:30 Morphine Sulfate 2 mg Q30M PRN IV 03/29/25 07:30 UNV Atorvastatin Calcium 10 mg HS PO 03/29/25 22:00 03/31/25 22:00 10 MG Sertraline HCl 25 mg DAILY PO 03/29/25 10:00 04/01/25 10:32 25 MG Morphine Sulfate 2 mg Q30M PRN IV 03/29/25 10:00 Cefepime HCl 50 ml @ 12.5 mls/hr Q12H IV 03/29/25 10:15 04/01/25 10:32 12.5 MLS/HR Famotidine 20 mg DAILY PO 03/31/25 10:00 04/01/25 10:32 20 MG Hydromorphone HCl 1 mg Q3HP PRN IV 03/30/25 14:30 Levothyroxine Sodium 50 mcg QAM PO 03/31/25 07:00 04/01/25 06:14 50 MCG Examination: GENERAL:Normal, HEENT:Normal, NECK:Normal, LUNGS:Normal, CVS:Normal, ABDOMEN:Normal, MSK:Normal, SKIN:Normal, NEURO:Normal, :Normal laboratory and microbiology Laboratory Tests 04/01/25 06:30 Test 04/01/25 06:30 Range/Units Serum Glucose 104 74-106 mg/dL Problem List/Assessment/Plan Problem List/Assessment/Plan * Hypertension. The patient's blood pressure medications will be held and blood pressure will be monitored. * Hyponatremia: free water restriction, 3% ns * Hypothyroidism. Her TSH will be checked. * Hyperlipidemia. * Questionable acute renal failure/vasomotor nephropathy. Renal function will be monitored. * Obesity. * Depression. * anemia: monitor * Status post right hip surgery for degenerative joint disease of the hip for which she will receive physical therapy and pain medication. advance care planning- full code- time spent 19 mins Plan discussed with: Patient, Daughter My Orders My Orders Orders - LEONARDO DUARTE MD Procedure Category Date Status Time Pt Request For Service PT 04/01/25 Logged 08:36 Urine Sodium LAB 04/01/25 Logged 12:55 Insert Silva Catheter ANTHONY 04/01/25 Verified 14:36 Echo 2d Mode Cardiac US 04/01/25 Verified DOP 14:36 Sodium Chl 3% PHA 04/01/25 Verified Hypertonic Ns 14:45 Basic Metabolic Panel LAB 04/02/25 Verified 06:00 Chest Portable XY 04/02/25 Verified 06:00 Date of Service: Apr 01, 2025 Billing Provider: LEONARDO DUARTE MD Common Visit Codes: [id number] INP/OBS CARE(HIGH) LEONARDO DUARTE MD Apr 01, 2025 14:41
[2025-04-01] MEDS ORDERED: SODIUM CHL 3% 500 ML IV ONE (14:45)
[2025-04-01] MEDS: SODIUM CHL 3% 500 ML IV ONE (16:35)
[2025-04-02] VITALS (8 sets, daily range): BP systolic 129–155; BP diastolic 50–72; PULSE 61–113; RESP 16–20; TEMP 97.5–98.1; O2SAT 94–96
[2025-04-02 07:26] LABS: Anion Gap 10 (5-15); Carbon Dioxide 21 mmol/L (20-31); Potassium 3.6 mmol/L (3.5-5.1)
[2025-04-02 07:32] LABS: BUN/Creatinine Ratio 15.9 (10.0-20.0); Blood Urea Nitrogen 11 mg/dL (9-23); Glucose 93 mg/dL (74-106)
[2025-04-02 07:34] LABS: Calcium 8.2 mg/dL (8.7-10.4); Chloride 94 mmol/L (98-107); Sodium 125 mmol/L (136-145)
--- NOTE | 2025-04-02 11:29 | DVH ---
EXAM: XY CHEST PORTABLE Indication: pain; chf Technique: Single frontal view of the chest was obtained Comparison: XY CHEST PORTABLE on DOS: 03/30/25 FINDINGS: Lines and Tubes: None Lungs: No focal consolidation. Pleura: No effusion. No pneumothorax. Cardiomediastinal contours: Unremarkable. Atherosclerotic vascular calcifications of the thoracic ao rta are noted. Bones: No acute osseous abnormality. IMPRESSION: No acute cardiopulmonary disease.
[2025-04-02] MEDS: LACTULOSE 20Gm/30ML SOLN PO ONE (15:00)
--- NOTE | 2025-04-02 20:10 | DVHPN2 ---
Subjective In bed feeling well Reviewed: Labs Changes from previous H/P or p: No Changes Objective Vitals Vital Signs Date Time Temp Pulse Resp B/P (MAP) Pulse Ox O2 Delivery O2 Flow Rate FiO2 04/02/25 17:30 98.1 113 18 148/69 (95) 94 98.1 04/02/25 08:00 Room Air* 0 N/A Nasal Cannula* Intake/Output Intake and Output 04/02/25 07:00 Intake Total 1450 ml Balance 1450 ml Intake Oral 1400 ml IV Total 50 ml # Voids 10 General Appearance: Alert, Oriented X3 Lungs: Clear to auscultation Cardiovascular: Regular rate, Normal S1, Normal S2 Medications Current Medications Medications Dose Ordered Sig/Lacey Route Start Time Stop Time Status Last Admin Dose Admin Patient Own Medication 10 mg DAILY PO 03/29/25 10:00 UNV Patient Own Medication 25 mg DAILY PO 03/29/25 10:00 UNV Sodium Chloride 10 ml Q8HR IV 03/29/25 14:00 04/02/25 09:22 10 ML Acetaminophen/ Hydrocodone Bitart 1 tab Q4HP PRN PO 03/29/25 07:30 04/02/25 14:24 1 TAB Ondansetron HCl 4 mg Q6HP PRN IV 03/29/25 07:30 Docusate Sodium 100 mg Q12HR PO 03/29/25 10:00 04/02/25 09:22 100 MG Nitroglycerin 0.4 mg Q5MINP PRN SL 03/29/25 07:30 Morphine Sulfate 2 mg Q30M PRN IV 03/29/25 07:30 UNV Atorvastatin Calcium 10 mg HS PO 03/29/25 22:00 04/01/25 21:54 10 MG Sertraline HCl 25 mg DAILY PO 03/29/25 10:00 04/02/25 09:21 25 MG Morphine Sulfate 2 mg Q30M PRN IV 03/29/25 10:00 Cefepime HCl 50 ml @ 12.5 mls/hr Q12H IV 03/29/25 10:15 04/02/25 09:22 12.5 MLS/HR Famotidine 20 mg DAILY PO 03/31/25 10:00 04/02/25 09:22 20 MG Hydromorphone HCl 1 mg Q3HP PRN IV 03/30/25 14:30 Levothyroxine Sodium 50 mcg QAM PO 03/31/25 07:00 04/02/25 06:29 50 MCG Lactulose 30 ml DAILY PO 04/03/25 10:00 Laboratory Results Laboratory Tests 04/01/25 06:30 04/02/25 04:39 Chemistry Test 04/02/25 04:39 Calcium Level 8.2 mg/dL (8.7-10.4) L Urinalysis Test 03/26/25 12:45 04/01/25 15:00 Urine Color Colorless (Yellow) Urine Clarity Clear (Clear) Urine pH 6.5 (5.0-9.0) Urine Specific [place] 1.007 (1.001-1.035) Urine Protein Negative (Negative) Urine Ketones Negative (Negative) Urine Blood Negative /uL (Negative) Urine Nitrite Negative (Negative) Urine Bilirubin Negative (Negative) Urine Urobilinogen Normal mg/dL (Negative) Urine Leukocyte Esterase Negative /uL (Negative) Urine RBC 1 /hpf (0 - 4) Urine Microscopic WBC < 1 /HPF (0-5) Urine Squamous Epithelial Cells Few /hpf (<5) Urine Bacteria Few /hpf (None Seen) H Urine Glucose Normal mg/dL (Normal) Urine Sodium 50 mmol/L (40-220) Assessment/Plan Assessment/Plan * Hypertension. The patient's blood pressure medications will be held and blood pressure will be monitored. * Hyponatremia: free water restriction, 3% ns>Na 125 * Hypothyroidism. Her TSH will be checked. * Hyperlipidemia. * Questionable acute renal failure/vasomotor nephropathy. Renal function will be monitored. * Obesity. * Depression. * anemia: monitor * Status post right hip surgery for degenerative joint disease of the hip for which she will receive physical therapy and pain medication. Plan discussed with: Patient My Orders Orders - CHAPO GARCIA MD Procedure Category Date Status Time Lactulose Oral PHA 04/03/25 In Process 10:00 Date of Service: Apr 02, 2025 Billing Provider: CHAPO GARCIA MD Common Visit Codes: [id number] INP/OBS CARE(HIGH) CHAPO GARCIA MD Apr 02, 2025 20:10
[2025-04-02] MEDS: MELATONIN 5 MG TAB PO PRN (21:32)
[2025-04-03 01:00] VITALS: BP 142/65; PULSE 108; RESP 20; TEMP 98; O2SAT 95
[2025-04-03 05:00] VITALS: BP 151/79; PULSE 110; RESP 21; TEMP 97.7; O2SAT 96
[2025-04-03 08:39] VITALS: BP 184/92; PULSE 106; RESP 18; TEMP 98.1; O2SAT 97
[2025-04-03] MEDS: LACTULOSE 20Gm/30ML SOLN PO SCH (08:50)
[2025-04-03 11:00] LABS: Potassium 3.8 mmol/L (3.5-5.1)
[2025-04-03 11:01] LABS: Anion Gap 12 (5-15); Calcium 8.8 mg/dL (8.7-10.4); Carbon Dioxide 23 mmol/L (20-31)
[2025-04-03 11:02] LABS: Chloride 95 mmol/L (98-107); Sodium 130 mmol/L (136-145)
[2025-04-03 11:06] LABS: BUN/Creatinine Ratio 12.5 (10.0-20.0); Blood Urea Nitrogen 10 mg/dL (9-23)
[2025-04-03 11:08] LABS: Glucose 119 mg/dL (74-106)
[2025-04-03 12:39] VITALS: BP 122/57; PULSE 98; RESP 16; TEMP 98.1; O2SAT 96
--- NOTE | 2025-04-03 15:22 | DVHPN2 ---
Subjective In bed feeling well Reviewed: Labs Changes from previous H/P or p: No Changes Objective Vitals Vital Signs Date Time Temp Pulse Resp B/P (MAP) Pulse Ox O2 Delivery O2 Flow Rate FiO2 04/03/25 12:39 98.1 98 16 122/57 (78) 96 98.1 04/03/25 08:00 Room Air* 0 21 Intake/Output Intake and Output 04/03/25 07:00 Intake Total 1200 ml Output Total 1500 ml Balance -300 ml Intake Oral 1150 ml IV Total 50 ml Output Urine Total 1500 ml # Bowel Movements 1 General Appearance: Alert, Oriented X3 Lungs: Clear to auscultation Cardiovascular: Regular rate, Normal S1, Normal S2 Medications Current Medications Medications Dose Ordered Sig/Lacey Route Start Time Stop Time Status Last Admin Dose Admin Patient Own Medication 10 mg DAILY PO 03/29/25 10:00 UNV Patient Own Medication 25 mg DAILY PO 03/29/25 10:00 UNV Sodium Chloride 10 ml Q8HR IV 03/29/25 14:00 04/03/25 13:23 10 ML Acetaminophen/ Hydrocodone Bitart 1 tab Q4HP PRN PO 03/29/25 07:30 04/03/25 08:51 1 TAB Ondansetron HCl 4 mg Q6HP PRN IV 03/29/25 07:30 Docusate Sodium 100 mg Q12HR PO 03/29/25 10:00 04/03/25 08:51 100 MG Nitroglycerin 0.4 mg Q5MINP PRN SL 03/29/25 07:30 Morphine Sulfate 2 mg Q30M PRN IV 03/29/25 07:30 UNV Atorvastatin Calcium 10 mg HS PO 03/29/25 22:00 04/02/25 21:07 10 MG Sertraline HCl 25 mg DAILY PO 03/29/25 10:00 04/03/25 08:51 25 MG Morphine Sulfate 2 mg Q30M PRN IV 03/29/25 10:00 Cefepime HCl 50 ml @ 12.5 mls/hr Q12H IV 03/29/25 10:15 04/03/25 08:50 12.5 MLS/HR Famotidine 20 mg DAILY PO 03/31/25 10:00 04/03/25 08:51 20 MG Hydromorphone HCl 1 mg Q3HP PRN IV 03/30/25 14:30 Levothyroxine Sodium 50 mcg QAM PO 03/31/25 07:00 04/03/25 06:07 50 MCG Lactulose 30 ml DAILY PO 04/03/25 10:00 04/03/25 08:50 30 ML Melatonin 5 mg HS PRN PO 04/02/25 21:00 04/02/25 21:32 5 MG Laboratory Results Laboratory Tests 04/01/25 06:30 04/03/25 10:30 Chemistry Test 04/03/25 10:30 Calcium Level 8.8 mg/dL (8.7-10.4) Urinalysis Test 03/26/25 12:45 04/01/25 15:00 Urine Color Colorless (Yellow) Urine Clarity Clear (Clear) Urine pH 6.5 (5.0-9.0) Urine Specific [place] 1.007 (1.001-1.035) Urine Protein Negative (Negative) Urine Ketones Negative (Negative) Urine Blood Negative /uL (Negative) Urine Nitrite Negative (Negative) Urine Bilirubin Negative (Negative) Urine Urobilinogen Normal mg/dL (Negative) Urine Leukocyte Esterase Negative /uL (Negative) Urine RBC 1 /hpf (0 - 4) Urine Microscopic WBC < 1 /HPF (0-5) Urine Squamous Epithelial Cells Few /hpf (<5) Urine Bacteria Few /hpf (None Seen) H Urine Glucose Normal mg/dL (Normal) Urine Sodium 50 mmol/L (40-220) Assessment/Plan Assessment/Plan * Hypertension. The patient's blood pressure medications will be held and blood pressure will be monitored. * Hyponatremia: free water restriction, 3% ns>Na 125>130 * Hypothyroidism. Her TSH will be checked. * Hyperlipidemia. * Questionable acute renal failure/vasomotor nephropathy. Renal function will be monitored. * Obesity. * Depression. * anemia: monitor * Status post right hip surgery for degenerative joint disease of the hip for which she will receive physical therapy and pain medication. Plan discussed with: Patient My Orders Orders - CHAPO GARCIA MD Procedure Category Date Status Time Basic Metabolic Panel LAB 04/04/25 Verified 05:00 Basic Metabolic Panel LAB 04/05/25 Verified 05:00 Basic Metabolic Panel LAB 04/06/25 Verified 05:00 Basic Metabolic Panel LAB 04/07/25 Verified 05:00 Basic Metabolic Panel LAB 04/08/25 Verified 05:00 Basic Metabolic Panel LAB 04/09/25 Verified 05:00 Basic Metabolic Panel LAB 04/10/25 Verified 05:00 Date of Service: Apr 03, 2025 Billing Provider: CHAPO GARCIA MD Common Visit Codes: [id number] INP/OBS CARE(HIGH) CHAPO GARCIA MD Apr 03, 2025 15:22
[2025-04-03 16:47] VITALS: BP 124/64; PULSE 54; RESP 18; TEMP 97.8; O2SAT 97
--- NOTE | 2025-04-03 17:14 | DVHSR ---
APPROVED REPORT EXAM: Two-dimensional and M-mode echocardiogram with Doppler, color Doppler and Bubble Study. Blood Pressure: 154/57 mmHg INDICATION chf RISK FACTORS Height: 5'4, Weight: 57 DIMENSIONS LVDd4.0 (3.8-5.7cm)LA (2D)4.8 (1.9-4.0cm)Aortic Root3.4 (2.0-3.7cm) LVDs2.4 (2.5-4.0cm)LA (MM) (1.9-4.0cm)Aortic Cusp Exc0.7 (1.5-2.0cm) EF (%) 65.0 (55-70%)Rt. Atrium4.9 (1.9-4.0cm)Asc. Aorta cm IVSd1.2 (0.7-1.1cm)RV (D) (1.8-2.4cm) PWd0.9 (0.7-1.1cm) Mitral Valve MitralMitral Stenosis E wave1.32m/sMV Mean GR.5mmHg A wave0.01m/sMV Peak GR.127mmHg E/A sniko621.02D MVAcm2 DECEL [id number] 1/2 Timems Aortic Valve Aortic ValveAortic Stenosis V11.24m/Shekhar Mean GR.10mmHg V22.22m/Shekhar Peak GR.20mmHg LVOT Diameter1.9 (1.8-2.4cm)Doppler AVA1.58cm2 Pulmonic Valve V21.03m/s Tricuspid Valve TR Velocity2.97m/s [id number] Other Information Technically limited study due to patient position. Conclusion Technically good study. Sinus rhythm Notable biatrial enlargement. Concentric LVH. Dilation of the sinuses of Valsalva. Moderate mitral annular calcification with nodularity noted at the base of the posterior mitral leafl et and diminished excursion of the posterior mitral leaflet. Moderate aortic sclerosis. Tricuspid and pulmonic or structurally normal. Left ventricular systolic performance is borderline at 50%. There is anterior hypokinesis compared t o the posterior and lateral wall. Normal RV function. [id number] MR. Mild TR. No pericardial effusion masses or vegetations discernible.
[2025-04-03 21:00] VITALS: BP 145/55; PULSE 100; RESP 16; TEMP 98.1; O2SAT 97
[2025-04-04] VITALS (7 sets, daily range): BP systolic 113–165; BP diastolic 45–85; PULSE 55–115; RESP 15–19; TEMP 96.5–98.3; O2SAT 94–99
[2025-04-04 06:09] LABS: Anion Gap 10 (5-15); Carbon Dioxide 25 mmol/L (20-31); Potassium 3.7 mmol/L (3.5-5.1)
[2025-04-04 06:15] LABS: BUN/Creatinine Ratio 12.3 (10.0-20.0); Blood Urea Nitrogen 9 mg/dL (9-23); Glucose 99 mg/dL (74-106)
[2025-04-04 06:16] LABS: Calcium 8.5 mg/dL (8.7-10.4); Chloride 95 mmol/L (98-107); Sodium 130 mmol/L (136-145)
[2025-04-04] MEDS: PANTOPRAZOLE 40 MG/10 ML VIAL INJ IV ONE (11:41)
--- NOTE | 2025-04-04 18:37 | DVHPN2 ---
Subjective In bed feeling well Reviewed: Labs Changes from previous H/P or p: No Changes Objective Vitals Vital Signs Date Time Temp Pulse Resp B/P (MAP) Pulse Ox O2 Delivery O2 Flow Rate FiO2 04/04/25 16:51 97.8 90 18 165/71 (102) 96 97.8 04/04/25 08:00 Nasal Cannula* 2 28 Intake/Output Intake and Output 04/04/25 07:00 Intake Total 1150 ml Output Total 1352 ml Balance -202 ml Intake Oral 1100 ml IV Total 50 ml Output Urine Total 1350 ml Stool Total 2 ml General Appearance: Alert, Oriented X3 Lungs: Clear to auscultation Cardiovascular: Regular rate, Normal S1, Normal S2 Medications Current Medications Medications Dose Ordered Sig/Lacey Route Start Time Stop Time Status Last Admin Dose Admin Patient Own Medication 10 mg DAILY PO 03/29/25 10:00 UNV Patient Own Medication 25 mg DAILY PO 03/29/25 10:00 UNV Sodium Chloride 10 ml Q8HR IV 03/29/25 14:00 04/04/25 14:00 10 ML Acetaminophen/ Hydrocodone Bitart 1 tab Q4HP PRN PO 03/29/25 07:30 04/03/25 20:57 1 TAB Ondansetron HCl 4 mg Q6HP PRN IV 03/29/25 07:30 Docusate Sodium 100 mg Q12HR PO 03/29/25 10:00 04/03/25 08:51 100 MG Nitroglycerin 0.4 mg Q5MINP PRN SL 03/29/25 07:30 Morphine Sulfate 2 mg Q30M PRN IV 03/29/25 07:30 UNV Atorvastatin Calcium 10 mg HS PO 03/29/25 22:00 04/03/25 21:14 10 MG Sertraline HCl 25 mg DAILY PO 03/29/25 10:00 04/04/25 08:42 25 MG Morphine Sulfate 2 mg Q30M PRN IV 03/29/25 10:00 Cefepime HCl 50 ml @ 12.5 mls/hr Q12H IV 03/29/25 10:15 04/04/25 08:44 12.5 MLS/HR Famotidine 20 mg DAILY PO 03/31/25 10:00 04/04/25 08:42 20 MG Hydromorphone HCl 1 mg Q3HP PRN IV 03/30/25 14:30 Levothyroxine Sodium 50 mcg QAM PO 03/31/25 07:00 04/04/25 06:11 50 MCG Lactulose 30 ml DAILY PO 04/03/25 10:00 04/03/25 08:50 30 ML Melatonin 5 mg HS PRN PO 04/02/25 21:00 04/03/25 22:27 5 MG Laboratory Results Laboratory Tests 04/01/25 06:30 04/04/25 04:36 Chemistry Test 04/04/25 04:36 Calcium Level 8.5 mg/dL (8.7-10.4) L Urinalysis Test 03/26/25 12:45 04/01/25 15:00 Urine Color Colorless (Yellow) Urine Clarity Clear (Clear) Urine pH 6.5 (5.0-9.0) Urine Specific [place] 1.007 (1.001-1.035) Urine Protein Negative (Negative) Urine Ketones Negative (Negative) Urine Blood Negative /uL (Negative) Urine Nitrite Negative (Negative) Urine Bilirubin Negative (Negative) Urine Urobilinogen Normal mg/dL (Negative) Urine Leukocyte Esterase Negative /uL (Negative) Urine RBC 1 /hpf (0 - 4) Urine Microscopic WBC < 1 /HPF (0-5) Urine Squamous Epithelial Cells Few /hpf (<5) Urine Bacteria Few /hpf (None Seen) H Urine Glucose Normal mg/dL (Normal) Urine Sodium 50 mmol/L (40-220) Assessment/Plan Assessment/Plan * Hypertension. The patient's blood pressure medications will be held and blood pressure will be monitored. * Hyponatremia: free water restriction, 3% ns>Na 125>130>130 * Hypothyroidism. Her TSH will be checked. * Hyperlipidemia. * Questionable acute renal failure/vasomotor nephropathy. Renal function will be monitored. * Obesity. * Depression. * anemia: monitor * Status post right hip surgery for degenerative joint disease of the hip for which she will receive physical therapy and pain medication. Dispo: Planning to [place] tomorrow with home health, declining any acute rehab Plan discussed with: Patient Date of Service: Apr 04, 2025 Billing Provider: CHAPO GARCIA MD Common Visit Codes: [id number] INP/OBS CARE(HIGH) CHAPO GARCIA MD Apr 04, 2025 18:37
[2025-04-05 01:00] VITALS: BP_SYST 122; BP_SYST 144; BP_DIAS 79; BP_DIAS 82; PULSE 54; PULSE 78; RESP 19; TEMP 97.2; O2SAT 98
[2025-04-05 05:00] VITALS: BP 149/77; PULSE 76; RESP 19; TEMP 85.1; O2SAT 97
[2025-04-05 08:24] LABS: Chloride 99 mmol/L (98-107); Potassium 3.8 mmol/L (3.5-5.1)
[2025-04-05 08:25] LABS: Anion Gap 8 (5-15); Calcium 9.1 mg/dL (8.7-10.4); Carbon Dioxide 26 mmol/L (20-31)
[2025-04-05 08:30] VITALS: BP 131/85; PULSE 83; RESP 18; TEMP 98.1; O2SAT 97
[2025-04-05 08:30] LABS: BUN/Creatinine Ratio 13.2 (10.0-20.0); Blood Urea Nitrogen 10 mg/dL (9-23); Glucose 95 mg/dL (74-106)
[2025-04-05 08:33] LABS: Sodium 133 mmol/L (136-145)
[2025-04-05 12:22] VITALS: BP 158/80; PULSE 105; RESP 16; TEMP 97.8; O2SAT 98
[2025-04-05] MEDS ORDERED: HYDR-4902 PO (14:25)
[2025-04-05] MEDS ORDERED: DOCU-94 PO (14:25)
[2025-04-05 16:30] VITALS: BP 164/84; PULSE 95; RESP 20; TEMP 97.2; O2SAT 92
--- NOTE | 2025-04-05 16:33 | DVHPN2 ---
Subjective In bed feeling well Reviewed: Labs Changes from previous H/P or p: No Changes Objective Vitals Vital Signs Date Time Temp Pulse Resp B/P (MAP) Pulse Ox O2 Delivery O2 Flow Rate FiO2 04/05/25 12:22 97.8 105 16 158/80 (106) 98 97.8 04/05/25 08:00 Room Air* 0 21 Intake/Output Intake and Output 04/05/25 07:00 Intake Total 1670 ml Output Total 1601 ml Balance 69 ml Intake Oral 1620 ml IV Total 50 ml Output Urine Total 1600 ml Stool Total 1 ml General Appearance: Alert, Oriented X3 Lungs: Clear to auscultation Cardiovascular: Regular rate, Normal S1, Normal S2 Medications Current Medications Medications Dose Ordered Sig/Lacey Route Start Time Stop Time Status Last Admin Dose Admin Patient Own Medication 10 mg DAILY PO 03/29/25 10:00 UNV Patient Own Medication 25 mg DAILY PO 03/29/25 10:00 UNV Sodium Chloride 10 ml Q8HR IV 03/29/25 14:00 04/05/25 13:11 10 ML Acetaminophen/ Hydrocodone Bitart 1 tab Q4HP PRN PO 03/29/25 07:30 04/05/25 14:05 1 TAB Ondansetron HCl 4 mg Q6HP PRN IV 03/29/25 07:30 Docusate Sodium 100 mg Q12HR PO 03/29/25 10:00 04/03/25 08:51 100 MG Nitroglycerin 0.4 mg Q5MINP PRN SL 03/29/25 07:30 Morphine Sulfate 2 mg Q30M PRN IV 03/29/25 07:30 UNV Atorvastatin Calcium 10 mg HS PO 03/29/25 22:00 04/04/25 21:55 10 MG Sertraline HCl 25 mg DAILY PO 03/29/25 10:00 04/05/25 08:51 25 MG Morphine Sulfate 2 mg Q30M PRN IV 03/29/25 10:00 Cefepime HCl 50 ml @ 12.5 mls/hr Q12H IV 03/29/25 10:15 04/05/25 08:51 12.5 MLS/HR Famotidine 20 mg DAILY PO 03/31/25 10:00 04/05/25 08:51 20 MG Hydromorphone HCl 1 mg Q3HP PRN IV 03/30/25 14:30 Levothyroxine Sodium 50 mcg QAM PO 03/31/25 07:00 04/05/25 06:06 50 MCG Lactulose 30 ml DAILY PO 04/03/25 10:00 04/03/25 08:50 30 ML Melatonin 5 mg HS PRN PO 04/02/25 21:00 04/03/25 22:27 5 MG Laboratory Results Laboratory Tests 04/01/25 06:30 04/05/25 07:25 Chemistry Test 04/05/25 07:25 Calcium Level 9.1 mg/dL (8.7-10.4) Urinalysis Test 03/26/25 12:45 04/01/25 15:00 Urine Color Colorless (Yellow) Urine Clarity Clear (Clear) Urine pH 6.5 (5.0-9.0) Urine Specific [place] 1.007 (1.001-1.035) Urine Protein Negative (Negative) Urine Ketones Negative (Negative) Urine Blood Negative /uL (Negative) Urine Nitrite Negative (Negative) Urine Bilirubin Negative (Negative) Urine Urobilinogen Normal mg/dL (Negative) Urine Leukocyte Esterase Negative /uL (Negative) Urine RBC 1 /hpf (0 - 4) Urine Microscopic WBC < 1 /HPF (0-5) Urine Squamous Epithelial Cells Few /hpf (<5) Urine Bacteria Few /hpf (None Seen) H Urine Glucose Normal mg/dL (Normal) Urine Sodium 50 mmol/L (40-220) Assessment/Plan Assessment/Plan * Hypertension. The patient's blood pressure medications will be held and blood pressure will be monitored. * Hyponatremia: free water restriction, 3% ns>Na 125>130>130 * Hypothyroidism. Her TSH will be checked. * Hyperlipidemia. * Questionable acute renal failure/vasomotor nephropathy. Renal function will be monitored. * Obesity. * Depression. * anemia: monitor * Status post right hip surgery for degenerative joint disease of the hip for which she will receive physical therapy and pain medication. Dispo: Planning to [place] tomorrow with home health, declining any acute rehab Plan discussed with: Patient My Orders Orders - CHAPO GARCIA MD Procedure Category Date Status Time * Water Tender CONS 04/05/25 Transmitted Consult Discharge DISCHARGE 04/05/25 Transmitted 14:25 Date of Service: Apr 05, 2025 Billing Provider: CHAPO GARCIA MD Common Visit Codes: [id number] INP/OBS CARE(HIGH) CHAPO GARCIA MD Apr 05, 2025 16:33
[2025-04-05 16:34] VITALS: BP 126/74; PULSE 67; TEMP 36.6
--- NOTE | 2025-04-14 06:01 | DVHDS2 ---
Discharge Summary Date of Admission Mar 29, 2025 at 07:22 Date of Discharge: Apr 05, 2025 Labs/Diagnostic Data: Laboratory Results Test 04/05/25 07:25 04/01/25 15:00 04/01/25 06:30 03/31/25 07:21 Sodium Level 133 mmol/L (136-145) Potassium Level 3.8 mmol/L (3.5-5.1) Chloride Level 99 mmol/L (98-107) Carbon Dioxide Level 26 mmol/L (20-31) Anion Gap 8 (5-15) Blood Urea Nitrogen 10 mg/dL (9-23) Creatinine 0.76 mg/dL (0.550-1.02) Glomerular Filtration Rate Calc 79 mL/min (>90) BUN/Creatinine Ratio 13.2 (10.0-20.0) Serum Glucose 95 mg/dL (74-106) Calcium Level 9.1 mg/dL (8.7-10.4) Urine Sodium 50 mmol/L (40-220) White Blood Count 9.8 10^3/uL (4.4-10.8) Red Blood Count 3.21 10^6/uL (4.0-5.20) Hemoglobin 9.8 g/dL (12.2-16.2) Hematocrit 27.7 % (36.0-46.0) Mean Corpuscular Volume 86.2 fL (80.0-100.0) Mean Corpuscular Hemoglobin 30.5 pg (28.0-32.0) Mean Corpuscular Hemoglobin Concent 35.4 g/dL (32.0-36.0) Red Cell Distribution Width 14.3 % (11.8-14.3) Platelet Count 218 10^3/uL (140-450) Mean Platelet Volume 7.3 fL (6.9-10.8) Neutrophils (%) (Auto) 79.7 % (37.0-80.0) Lymphocytes (%) (Auto) 9.3 % (10.0-50.0) Monocytes (%) (Auto) 9.7 % (0.0-12.0) Eosinophils (%) (Auto) 1.0 % (0.0-7.0) Basophils (%) (Auto) 0.3 % (0.0-2.0) Neutrophils # (Auto) 7.8 10 ^3/uL (1.6-8.6) Lymphocytes # (Auto) 0.9 10 ^3/uL (0.4-5.4) Monocytes # (Auto) 1.0 10 ^3/uL (0-1.3) Eosinophils # (Auto) 0.1 10 ^3/uL (0-0.8) Basophils # (Auto) 0 10 ^3/uL (0-0.2) Nucleated Red Blood Cells 0.0 % Total Bilirubin 0.5 mg/dL (0.2-1.0) Aspartate Amino Transferase (AST) 57 U/L (13-40) Alanine Aminotransferase (ALT) 14 U/L (7-40) Alkaline Phosphatase 59 U/L (46-116) Total Protein 5.8 g/dL (5.7-8.2) Albumin 3.5 g/dL (3.2-4.8) Thyroid Stimulating Hormone (TSH) 1.47 uIU/mL (0.55-4.78) Test 03/26/25 12:45 Prothrombin Time 10.9 sec (9.3-11.8) Prothrombin Time INR 1.03 (0.9-1.15) Activated Partial Thromboplast Time 30.5 SEC (24.5-34.5) Urine Color Colorless (Yellow) Urine Clarity Clear (Clear) Urine pH 6.5 (5.0-9.0) Urine Specific [place] 1.007 (1.001-1.035) Urine Protein Negative (Negative) Urine Ketones Negative (Negative) Urine Blood Negative /uL (Negative) Urine Nitrite Negative (Negative) Urine Bilirubin Negative (Negative) Urine Urobilinogen Normal mg/dL (Negative) Urine Leukocyte Esterase Negative /uL (Negative) Urine RBC 1 /hpf (0 - 4) Urine Microscopic WBC < 1 /HPF (0-5) Urine Squamous Epithelial Cells Few /hpf (<5) Urine Bacteria Few /hpf (None Seen) Urine Glucose Normal mg/dL (Normal) Other Laboratory Tests 04/05/25 07:25 04/01/25 06:30 Brief Hx & Hospital Course: 79-year-old lady who is admitted after she underwent surgery on the right hip for DJD of the hip. The patient at this time complains of dizziness. No history of syncope. No chest pain. No shortness of breath. No nausea or vomiting. During hospital stay developed hyponatremia that required 3% saline and Na improved to 130 worked with PT and did well Condition at Discharge: Good Final Diagnosis/Problems List right hip OA hyponatremia Hypertension. Hypothyroidism. Hyperlipidemia. 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 Obesity. Depression. anemia: monitor Discharge Disposition: Home Discharge Instruct/Medications Diet: Regular Activity: No Restrictions, As Tolerated Follow Up/Referral: PCP in 7 days Medications: norco Discharge Statement: "Patient was advised to return to the ER or call 911 if any headaches, dizziness, shortness of breath, chest pain, abdominal pain, bleeding, fevers, or worsening of medical condition. Patient was counseled about treatment plan, medications, possible side effects, patientverbalized understanding. All questions were answered to the best of my ability. This discharge took greater then 30 minutes in planning, reviewing documentation, counseling the patient, and discussing with other team members." ASSESSMENT ASSESSMENT Assessment right hip OA Date of Service: Apr 05, 2025 Billing Provider: CHAPO GARCIA MD Common Visit Codes: 36968-MZN/OBS DISCH DAY >30min CHAPO GARCIA MD Apr 14, 2025 06:01
== END 2025-04-05 17:00 | disposition home health service (06) | DRG 469 ==
LOC: SUR 06:02 → OVERFLOW 07:22 → WEST WING 10:40
PROVIDERS: ADMIT Hospitalist; ATTEND Hospitalist
PROC: 8E0YXBZ Computer Assisted Procedure of Lower Extremity (ICD-10-PCS; 2025-03-29)
PROC: 0SR906Z Replacement of Right Hip Joint with Oxidized Zirconium on Polyethylene Synthetic Substitute, Open Approach (ICD-10-PCS; principal; 2025-03-29 07:12)
DX: M16.11 Unilateral primary osteoarthritis, right hip (principal); N17.0 Acute kidney failure with tubular necrosis; E87.1 Hypo-osmolality and hyponatremia; E78.5 Hyperlipidemia, unspecified; E66.9 Obesity, unspecified; E03.9 Hypothyroidism, unspecified; F32.A Depression, unspecified; I10 Essential (primary) hypertension; Z68.35 Body mass index [BMI] 35.0-35.9, adult; D64.9 Anemia, unspecified; I48.91 Unspecified atrial fibrillation
CPT/HCPCS: 36415; 71045; 72170; 80048; 80053; 81001; 84300; 84443; 85014; 85018; 85025; 85610; 85730; 86850; 86900; 86901; 93306; 97110; 97116; 97163; 97530; G0378; J0131; J1100; J1885; J2003; J2250; J2405; J2470; J2704; J3490